=== PATIENT | male | born 1955 | race Caucasian/White ===

== ENCOUNTER 2021-12-21 19:09 | Emergency (ER) | payer MEDICAID, SELFPAY ==
--- NOTE | ~2021-12-21 | XR_ITS ---
EXAMINATION: XR LUMBOSACRAL SPINE CLINICAL INFORMATION: Lower back pain COMPARISON: None TECHNIQUE: Three views of the lumbosacral spine. FINDINGS: Vertebral body heights are fairly well-preserved. There is mild intervertebral disc height loss at L4-L5. Mild posterior facet hypertrophy in the lower lumbar spine. Multilevel marginal osteophyte formation. Alignment is normal. Sacroiliac joints are intact. XR/XR lumbar spine 2-3V IMPRESSION: Mild spondylitic changes with degenerative disc disease at L4-L5.
[2021-12-21 19:13] VITALS: BP 145/98; PULSE 89; RESP 18; TEMP 36.5; O2SAT 97; BMI 37.8
--- NOTE | 2021-12-21 20:31 | ED.GENADULT ---
HPI - General Adult General Chief complaint: Back Pain/Injury Stated complaint: Back pain Time Seen by Provider: 12/21/21 19:42 Source: patient Mode of arrival: ambulatory Limitations: no limitations History of Present Illness HPI narrative: 66-year-old male presents to ED for left lower back pain since Saturday. Patient states pain is worse on movement and feels like his back locks up and spasms. Patient denies any flank pain, testicular pain, abdominal pain, nausea, vomiting, dysuria, hematuria, fever, chills, weakness, or any blunt trauma. Related Data Previous Rx's Medication Instructions Recorded cyclobenzaprine 10 mg tablet 10 mg PO TID PRN muscle spasm 7 12/21/21 days #21 tabs ketorolac 10 mg tablet 10 mg PO QID 5 days #20 tabs 12/21/21 prednisone 20 mg tablet 40 mg PO DAILY 5 days #10 tabs 12/21/21 Allergies Allergy/AdvReac Type Severity Reaction Status Date / Time ciprofloxacin [From Cipro] Allergy Intermediate Chest Pain Verified 12/21/21 19:13 Review of Systems Review of Systems: back pain [facility] Social History Social History Advance Directives: No Advance Directives Information Provided: No Physical Exam ED Vital Signs: Vital Signs - 24 hr 12/21/21 19:13 Temperature 97.7 F Pulse Rate 89 Respiratory Rate 18 Blood Pressure 145/98 H Pulse Oximetry 97 Oxygen Delivery Method Room Air BMI result Body Mass Index 37.8 Const General: cooperative, healthy appearing, comfortable, no acute distress, well developed, alert, awake and Physically active Orientation/consciousness: patient oriented x3 HENMT Head: Yes normal to inspection, Yes No palpable skull fracture present, Yes normocephalic, Yes atraumatic and No abrasion Eyes General: appearance normal, both eyes and all related structures Neck Neck: Yes normal visual inspection, Yes full ROM, Yes no lymphadenopathy, Yes no meningeal signs, Yes trachea midline, Yes supple, No anterior neck swelling and No tender Chest Chest palpation & inspection: normal inspection of the chest and normal palpation of entire chest wall Resp Effort & Inspection: normal respiratory effort and able to speak in complete sentences Auscultation: clear to auscultation bilaterally Cardio Jugular venous distension: no JVD Heart sounds: S1 normal heart sound present and S2 normal heart sound present GI Inspection: Yes normal to inspection and No abdominal wall ecchymosis Palpation (GI): Soft to palpation, not firm, nontender, no guarding and not rigid General: No CVA tenderness and Yes no CVA tenderness Back/Spine/Pelvis Back: no CVA tenderness, No CVA tenderness and back tenderness (lumbar) Skin General skin exam: no rashes or lesions noted and elasticity normal Neuro General: patient oriented x3, gait normal, no meningeal signs and CN's II-XI intact bilaterally Cranial nerves: Yes CN's II-XII intact bilaterally Extrem General: Yes normal to inspection and Yes full ROM Psych Appearance: grossly normal, well kempt and not disheveled Course Course Course Narrative: Patient sent for lumbar x-ray. Pain meds ordered. Reevaluation(s) Reevaluation #1: X-ray ching is lumbar radiculopathy/arthritis. Patient is safe for discharge. Not suspecting cauda equinus syndrome or epidural abscess. Time: 21:07 Discharge Plan Discharge Clinical Impression: Lumbar radiculopathy Patient Disposition: Home, Self-Care Instructions: Lumbar Radiculopathy (ED) Additional Instructions: Return to the ED immediately for any urinary/bowel incontinence, severe abdominal pain, worsening back pain, paralysis of lower extremities, nausea, vomiting, flank pain, fever, chills, dysuria, hematuria, testicular pain, or any other concerning symptoms. Prescriptions: New ketorolac 10 mg tablet 10 mg PO QID 5 Days Qty: 20 0RF Rx Instructions: given 30mg IM toradol in the ED prednisone 20 mg tablet 40 mg PO DAILY 5 Days Qty: 10 0RF cyclobenzaprine 10 mg tablet 10 mg PO TID PRN (Reason: muscle spasm) 7 Days Qty: 21 0RF Rx Instructions: side effect is drowsiness. Do not take at home or while working Stand Alone Forms: Work/School Release Interventions: ED Discharge Assessment Last Done: 12/21/21 21:16 Discharge Date/Time: 12/21/21 21:16 Print Language: Slovak
[2021-12-21] MEDS: Cyclobenzaprine HCl 10 MG TABLET PO (20:32)
[2021-12-21] MEDS: Ketorolac Tromethamine 30 MG/ML VIAL IM (20:32)
[2021-12-21] MEDS: predniSONE 20 MG TABLET 60 MG PO (20:33)
--- NOTE | 2021-12-21 20:37 | PC.NURSE ---
pt a&ox3, vss, medicated per provider order, pt pending XR results.
== END 2021-12-21 21:16 | disposition home or self-care (01) ==
LOC: HO.ED 21:15
PROVIDERS: Emergency Provider Emergency Medicine
DX: M54.16 Radiculopathy, lumbar region (principal)
CPT/HCPCS: 72100; 96372; 99283; 99284; J1885

== ENCOUNTER 2023-10-03 13:35 | Outpatient (AMB) | payer MEDICARE, SELFPAY ==
--- NOTE | 2023-10-03 14:02 | MHC.OFFVIS ---
Vital Signs 10/03/23 14:12 Height 6 ft 2 in Weight 254 lb BMI 32.6 BP 122/75 Blood Pressure Location Lt brachial Position Sitting Pulse 78 Intake Visit Reasons: Colonoscopy screening Intake Note: Patient new consult for 3rd pre Colonoscopy screening Patient denies any GI issues. Health Services Information Specialist Required: No Accompanied by: Self / Same As Patient Allergies ciprofloxacin [From Cipro] Allergy (Intermediate, Verified 12/21/21 19:13) Chest Pain Medication List - Last Reconciled 10/03/23 by Trisha Patterson PA-C aspirin 81 mg PO DAILY ibuprofen 400 mg PO Q8H lisinopril 10 mg PO DAILY HPI Comments Details: A very pleasant 67 y/o male referred with history of large polyp 05/27- 40 mm polypproximal descending colon and an 8 mm polyp- no path report Repeat colon- 09/2021- no residual polyp- repeat 2 year. He has no GI or general complaints No known family history of GI cancer Appetite is good Bowels are normal No nausea, vomiting, hematemesis, hematochezia fever chills PFSH Surgical History Hx of ankle fusion Hx of tonsillectomy Hx of colonoscopy Social History Household Members: Family Alcohol intake: current Alcohol intake frequency: a few times a week Patient Tobacco Use Status: Never used Tobacco Use of substances other than those prescribed or required for medical reasons: No Review of Systems Const All systems reviewed & are unremarkable except as noted in HPI and below Card Denies chest pain, Denies dyspnea and Denies dyspnea on exertion Resp Denies dyspnea and Denies dyspnea on exertion GI Denies abdominal pain, Denies heartburn, Denies diarrhea, Denies nausea and Denies vomiting Physical Exam Vital Signs: Last Vital Signs Pulse 78 10/03/23 14:12 BP 122/75 10/03/23 14:12 BMI result Body Mass Index 32.6 Const General: cooperative, healthy appearing, comfortable and no acute distress Orientation/consciousness: patient oriented x3 Limitations: no limitations Resp Effort & Inspection: normal respiratory effort and able to speak in complete sentences Auscultation: clear to auscultation bilaterally, no rales, no rhonchi and no wheezes Cardio Rate: regular rate Rhythm: regular rhythm Heart sounds: S1 normal heart sound present and S2 normal heart sound present GI Palpation (GI): Soft to palpation and nontender Auscultation: normal bowel sounds Skin General skin exam: no rashes or lesions noted Neuro General: patient oriented x3 Extrem General: Yes full ROM Psych Appearance: grossly normal and well kempt Mental Status: mental status grossly normal Speech and movement: Normal speech and movement present Affect: normal affect Attitude: cooperative Thought process: Normal thought process present Thought content: Normal thought content present Insight: Good insight present (Psych) Judgement: Good judgement present (Psych) Results Reviewed Results Reviewed: Reviewed previous colonoscopy 05/2021 40 mm and 8 mm colon polyp-no pathology , 09/2021 no polyps Assessment & Plan Assessment & Plan (1) Colon polyps: Comment: 05/2021- [facility]- 40 mm- 8 mm 09/2021- no polyp Code(s): K63.5 - Polyp of colon Category: Medical (2) Family history of colon cancer: Comment: Mother-age unknown Code(s): Z80.0 - Family history of malignant neoplasm of digestive organs Category: Medical Plan polyp surveillance-Dr. Diaz- per request MG prep Orders: Orders Colonoscopy - GI Use Only 10/03/23 K63.5 - Polyp of colon, Z80.0 - Family history of malignant neoplasm of digestive organs Medications: New bisacodyl (Dulcolax (bisacodyl)) Day before procedure @ 12 noon Take 4 tablets by mouth followed by large glass of water 20 mg (4 x 5 mg) PO ONCE 1 day PRN 4 tabs 0RF colonoscopy prep Z12.11 - Encounter for screening for malignant neoplasm of colon polyethylene glycol 3350 (Miralax) Take as directed by mouth the day before your procedure. 238 grams PO ONCE 1 day PRN 238 grams 0RF laxative effect Patient Instructions: polyp surveillance-Dr. Diaz- per request MG prep, reviewed literature given Encouraged to call questions or concerns Coding Level of Care Code New Pt Level 3 (08598) Diagnoses Colon polyps K63.5 Family history of colon cancer Z80.0 Time Spent (min) 30
[2023-10-03 14:12] VITALS: BP 122/75; PULSE 78; BMI 32.6
== END 2023-10-03 15:11 | disposition home or self-care (01) ==
PROVIDERS: PCP Family Medicine; Visit Provider Physician Assistant
DX: K63.5 Polyp of colon (principal); Z80.0 Family history of malignant neoplasm of digestive organs
CPT/HCPCS: 99203

== ENCOUNTER → 2023-10-03 13:35 | Outpatient (BNVA) | payer MEDICARE, SELFPAY | PROVIDERS: PCP Family Medicine; Visit Provider Physician Assistant | DX: K63.5 Polyp of colon (principal); Z80.0 Family history of malignant neoplasm of digestive organs | CPT/HCPCS: 99202 ==

== ENCOUNTER 2024-02-20 07:34 | Day surgery (SDC) | payer MEDICARE, SELFPAY ==
--- NOTE | 2024-02-18 10:44 | P.CONAN_ITS ---
Documented by User: Kaylyn Linares NP 02/18/24 10:44 HPI - Anesthesia Eval Consult details Narrative: 68yo M for Colonoscopy PMFSH Active Problems Active Problems: All Active Problems Family history of colon cancer (Acute) Colon polyps (Acute) Past Medical History Medical History HTN (hypertension) Surgical History Surgical History Hx of ankle fusion Hx of tonsillectomy Hx of colonoscopy Social History Social History Household Members: Family Are you a primary resident care coordinator to a significant other at home: No Do you presently have visiting nurse or other home services: No Alcohol intake: current Alcohol intake frequency: a few times a week Patient Tobacco Use Status: Never used Tobacco Use of substances other than those prescribed or required for medical reasons: No Are you DNR?: No Advance Directives: No Advance Directives Information Provided: Yes Recently lost weight without trying: No Meds Allergies Allergy/AdvReac Type Severity Reaction Status Date / Time ciprofloxacin [From Cipro] Allergy Intermediate Chest Pain Verified 12/21/21 19:13 Home Medications ?Medication ?Instructions ?Recorded ?Confirmed ?Last Taken ?Type aspirin 81 mg tablet,delayed 81 mg PO DAILY 10/03/23 10/03/23 Unknown History release ibuprofen 200 mg tablet 400 mg PO Q8H 10/03/23 10/03/23 Unknown History lisinopril 10 mg tablet 10 mg PO DAILY 10/03/23 10/03/23 Unknown History Assessment and Plan Assessment Anesthesia Assessment: Chart Reviewed Documented by User: Lynda Melendez MD 02/20/24 09:36 PMFSH Past Medical History Medical History HTN (hypertension) Family History Family history of problems with anesthesia: No Surgical History Surgical History Hx of ankle fusion Hx of tonsillectomy Hx of colonoscopy History of Problems with Anesthesia: No Social History Social History Household Members: Family Are you a primary resident care coordinator to a significant other at home: No Do you presently have visiting nurse or other home services: No Alcohol intake: current Alcohol intake frequency: a few times a week Patient Tobacco Use Status: Never used Tobacco Use of substances other than those prescribed or required for medical reasons: No Are you DNR?: No Advance Directives: No Advance Directives Information Provided: Yes Recently lost weight without trying: No Meds Allergies Allergy/AdvReac Type Severity Reaction Status Date / Time ciprofloxacin [From Cipro] Allergy Intermediate Chest Pain Verified 12/21/21 19:13 Home Medications ?Medication ?Instructions ?Recorded ?Confirmed ?Last Taken ?Type aspirin 81 mg tablet,delayed 81 mg PO DAILY 10/03/23 10/03/23 Unknown History release ibuprofen 200 mg tablet 400 mg PO Q8H 10/03/23 10/03/23 Unknown History lisinopril 10 mg tablet 10 mg PO DAILY 10/03/23 10/03/23 Unknown History Exam Airway Mallampati Class: III TM Dist: >3cm Neck ROM: Full Heart: rrr Lungs: cta Assessment and Plan Assessment Anesthesia Assessment: Anesthesia Plan Discussed Final Anesthetic Review Family History of Problems with Anesthesia: No History of Problems with Anesthesia: No NPO: Yes ASA Class: III Final Preanesthetic Review: No Changes in Pt Med Stat, Meds/Allgs Chart Reviewed, Consent Obtained/Reviewed and Anes Risks/Benef Reviewed Patient Risk: Intermediate Procedure Risk: Low Anesthetic Plan Anesthetic Plan: MAC: Disposition: Standard PACU
[2024-02-18 14:58] VITALS: BMI 32.6
[2024-02-20 08:31] VITALS: BP 125/100; PULSE 110; RESP 16; TEMP 36.6; O2SAT 99; BMI 34.3
[2024-02-20] MEDS: Lactated Ringers 1,000 ML 100 ML IVCONT (08:42)
--- NOTE | 2024-02-20 09:30 | P.HPSUR_ITS ---
Pre-Procedural Eval Section A - 24 Hr Update-Section A only Date of Service: 02/20/24 Section B - Complete if H&P > 30 days Chief Complaint: Family history of malignant neoplasm of digestive Relevant Family History (Specify if Yes): Yes Relevant Social History: None Present Medications: see Short Stay Collaborative assessment Medical History: Significant History (Family history of colon cancer Colon p olyps ) History of Previous Operations: Relevant previous surgery/procedure and date(s) (Hx of ankle fusion Hx of tonsillectomy Hx of colonoscopy) Allergies: Allergies Allergy/AdvReac Type Severity Reaction Status Date / Time ciprofloxacin [From Cipro] Allergy Intermediate Chest Pain Verified 12/21/21 19:13 Review of Systems Sugical H&P ROS: Negative: Constitution, Cardiovascular, Respiratory, Neurological, Psychiatric, Hem-Onc, Allergic/Immunologic, Gastrointestinal, Genitourinary, Musculoskeletal, Integumentary, Endocrine and Eyes/Ears/Nose/Throat Exam Surgical H&P Exam: Normal: HEENT, Normal: Heart, Normal: Lungs, Normal: Extremities, Normal: Abdomen, Normal: Skin and Normal: Neurological Plan Diagnosis/Plan: Unchanged I have reviewed the history and physical and performed a pertinent physical examination on my patient. No changes have occurred unless specified. Time Spent With Patient Time: Total time managing care of this patient today ____ minutes.
--- NOTE | 2024-02-20 10:05 | HO.OPN-COLON ---
Colonoscopy Operative Note Operative Note Date of Service: 02/20/24 Narrative: Operative Information Procedure Description: Colonoscopy Indication: hx of advanced polyp Anesthesia: MAC COLONOSCOPY Instrument: Olympus variable stiffness pediatric scope 190L Colonoscopy Monitoring: Vital signs and clinical assessment, continuous EKG monitoring, Pulse oximetry, Carbon Dioxide monitoring and blood pressure monitoring were done throughout the procedure. Colon withdrawal time was 10 minutes. Procedure: The patient was placed in the left lateral decubitis position and pre-procedure medications were administered. After a digital rectal examination of the ano-rectum, the video colonoscope was inserted into the rectum and advanced through the colon to the cecum/TI. The colonoscope was slowly withdrawn in a retrograde panoramic fashion and the colon mucosa was carefully examined including a retroflexed view of the rectum. Findings and interventions are described below. Procedure Difficulty: easy Findings: Terminal Ileum-normal Cecum:normal Right sided retroflexion - normal Ascending Colon: 5-7 mm sessile polyp removed with cold snare Transverse Colon -normal Descending Colon: 3-4 mm sessile polyp removed with cold forceps, tattooo see at around 65 cm -no residual polyp tissue noted Sigmoid Colon: normal Rectum: Retroflexion with small internal hemorrhoids seen, grade I Anorectum - normal Intervention: cold snare, cold forceps Colon preparation: [place] Bowel Preparation Scale Right colon; 2 Transverse colon: 2 Left colon; 3 (0 = Unprepared colon segment with mucosa not seen due to solid stool that cannot be cleared. 1 = Portion of mucosa of the colon segment seen, but other areas of the colon segment not well seen due to staining, residual stool and/or opaque liquid. 2 = Minor amount of residual staining, small fragments of stool and/or opaque liquid, but mucosa of colon segment seen well. 3 = Entire mucosa of colon segment seen well with no residual staining, small fragments of stool or opaque liquid) Impression and Post Procedure Diagnosis: colon polyps internal hemorrhoids Plan: High fiber diet leaflet Avoid straining at stool, epsom salts and sitz bath, anusol supps or cream Repeat Colonoscopy in 2 years due to hx of advanced polyp or earlier if clinically indicated Above findings were reviewed with the patient and relevant handouts were provided if indicated.
[2024-02-20 10:09] VITALS: BP 106/72; PULSE 92; RESP 16; TEMP 36.1; O2SAT 96
[2024-02-20 10:24] VITALS: BP 120/83; PULSE 98; RESP 16; O2SAT 96
[2024-02-20 10:37] VITALS: BP 129/91; PULSE 86; RESP 16; TEMP 36.2; O2SAT 97
== END 2024-02-20 11:05 | disposition home or self-care (01) ==
PROVIDERS: PCP Family Medicine; Visit Provider Internal Medicine Gastroenterology
PROC: 0DJD8ZZ Inspection of Lower Intestinal Tract, Via Natural or Artificial Opening Endoscopic (ICD-10-PCS; CPT 45378; principal; 2024-02-20 10:00)
DX: Z12.11 Encounter for screening for malignant neoplasm of colon (principal); Z86.0101 Personal history of adenomatous and serrated colon polyps; D12.4 Benign neoplasm of descending colon; K64.0 First degree hemorrhoids; Z80.0 Family history of malignant neoplasm of digestive organs; I10 Essential (primary) hypertension; Z79.82 Long term (current) use of aspirin; Z79.899 Other long term (current) drug therapy
CPT/HCPCS: 45385; 45380; 88305; J2003; J2250; J2704

== ENCOUNTER → 2024-02-20 07:34 | Outpatient (BNV) | payer MEDICARE, SELFPAY | PROVIDERS: PCP Family Medicine; Visit Provider Internal Medicine Gastroenterology | DX: Z12.11 Encounter for screening for malignant neoplasm of colon (principal); Z86.0100 Personal history of colon polyps, unspecified; D12.4 Benign neoplasm of descending colon; K63.5 Polyp of colon; K64.0 First degree hemorrhoids | CPT/HCPCS: 45380; 45385 ==